=== PATIENT | male | born 1980 | race African-American/Black ===

== ENCOUNTER 2024-02-04 20:25 | Emergency (ER) | payer SELFPAY ==
[~2024-02-04] VITALS: Ht 180.3 cm; Wt 104.0 kg
[2024-02-04 21:40] VITALS: TEMP 98
[2024-02-04 22:00] VITALS: BP 125/86; PULSE 102; RESP 24
[2024-02-04] MEDS: KETOROLAC TROMETHAMINE 30 MG/ML VIAL IM ONE (23:56)
== END 2024-02-05 01:31 | disposition home or self-care (01) ==
LOC: EMS 20:25
DX: S02.2XXA Fracture of nasal bones, initial encounter for closed fracture (principal); S01.21XA Laceration without foreign body of nose, initial encounter; S80.01XA Contusion of right knee, initial encounter; Y09 Assault by unspecified means; Y93.89 Activity, other specified; Y92.512 Supermarket, store or market as the place of occurrence of the external cause; Y99.8 Other external cause status
CPT/HCPCS: 99285; 70450; 71101; 73562; 70486; 72125; 12011; 96372; J1885